=== PATIENT | female | born 1945 | race African-American/Black ===

== ENCOUNTER 2020-07-08 10:36 | Emergency (ER) | payer OTHER, MEDICAID ==
[~2020-07-08] VITALS: Ht 165.1 cm; Wt 62.0 kg
[2020-07-08] MEDS ORDERED: SODIUM CHLORIDE 0.9% 1000ML BAG (SEPSIS BOLUS) IV ONE (10:45)
[2020-07-08 11:10] LABS: BASOPHILS % 0.6 % (0.0-2.0); EOSINOPHILS % 3.5 % (0.0-5.0); HEMOGLOBIN. 10.1 g/dL (12.0-16.0); LYMPHOCYTES % 9.7 % (20.0-50.0); MEAN CORPUSCULAR HEMOGLOBIN 36.5 pg (28.0-32.0); MEAN CORPUSCULAR VOLUME 108.5 fL (81.0-99.0); MEAN PLATELET VOLUME 8.8 fl (7.4-10.4); MONOCYTES % 10.2 % (2.0-8.0); PLATELET 314 x1000/uL (130-400); RED BLOOD CELL COUNT 2.76 mill/uL (4.2-5.4); RED CELL DISTRIBUTION WIDTH 14.4 % (11.6-14.6)
[2020-07-08 11:17] LABS: CHLORIDE 94 mEq/L (98-107)
[2020-07-08] MEDS ORDERED: PIPERACILLIN/TAZ 3.375G PREMIX 50 ML IV ONE (12:00)
[2020-07-08] MEDS ORDERED: VANCOMYCIN 1 G PREMIX 200 ML IV ONE (12:00)
[2020-07-08 14:00] VITALS: BP 135/72
== END 2020-07-08 14:54 | disposition left against medical advice (07) ==
LOC: ER 10:36 → EDBEDREQ 10:55 → EDBEDREQTM 12:02 → EDBEDREQSVC 12:02 → EDBEDREQ 12:02 → ER 14:54 → CANBEDREQ 15:50
DX: E87.2 Acidosis (principal); I95.9 Hypotension, unspecified; R53.1 Weakness; R42 Dizziness and giddiness; R53.83 Other fatigue; I12.0 Hypertensive chronic kidney disease with stage 5 chronic kidney disease or end stage renal disease; E11.22 Type 2 diabetes mellitus with diabetic chronic kidney disease; N18.6 End stage renal disease; Z99.2 Dependence on renal dialysis; Z98.890 Other specified postprocedural states; Z86.73 Personal history of transient ischemic attack (TIA), and cerebral infarction without residual deficits; Z88.2 Allergy status to sulfonamides
CPT/HCPCS: 36415; 71045; 80053; 82962; 83605; 84145; 84484; 85025; 87040; 93005; 96361; 96365; 96367; 99285; J2543; J3370; J7030